=== PATIENT | male | born 1975 | race Caucasian/White ===

== ENCOUNTER 2017-12-26 18:05 | Emergency (ER) | payer OTHER ==
[2017-12-26 18:34] VITALS: BP 133/84
--- NOTE | 2017-12-26 18:58 | ED ---
Skin Complaint - HPI Summary HPI Summary: 41 yr old male with redness, swelling, pain, hardness to the posterior left axilla. The patient reports that in the beginning he had pimple, attempted to squeeze it, and little by little it has gotten larger and harder. The pain is moderate. He was put on keflex yesterday but has only taken two pills. No fever or chills - History of Current Complaint Chief Complaint: UCSkin Time Seen by Provider: 12/26/17 18:41 Stated Complaint: L SHOULDER/ARM SKIN CONDITION Pain Intensity: 9 - Allergy/Home Medications Allergies/Adverse Reactions: Allergies Allergy/AdvReac Type Severity Reaction Status Date / Time metformin AdvReac GI Upset Verified 12/26/17 18:29 Home Medications: Home Medications Pioglitazone TAB* [Actos TAB*] 15 mg PO DAILY 12/26/17 [History Confirmed ] PMH/Surg Hx/FS Hx/Imm Hx Endocrine/Hematology History: Reports: Hx Diabetes - Type 2 Cardiovascular History: Denies: Hx Hypertension Respiratory History: Denies: Hx Asthma - Surgical History Surgery Procedure, Year, and Place: left wrist surgery. R ACL repair Infectious Disease History: No Infectious Disease History: Denies: Traveled Outside the [place] in Last 30 Days - Family History Known Family History: Positive: Diabetes - Social History Occupation: Employed Full-time Alcohol Use: None Substance Use Type: Reports: None Smoking Status (MU): Never Smoked Tobacco Type: Smokeless Tobacco Amount Used/How Often: 1 can/day Review of Systems Constitutional: Negative Positive: Other - skin, sts, redness. All Other Systems Reviewed And Are Negative: Yes Physical Exam Triage Information Reviewed: Yes Vital Signs On Initial Exam: Initial Vitals Temp Pulse Resp BP Pulse Ox 98.5 F 85 14 133/84 98 12/26/17 18:30 12/26/17 18:30 12/26/17 18:30 12/26/17 18:30 12/26/17 18:30 Vital Signs Reviewed: Yes Appearance: Positive: Well-Appearing, No Pain Distress Skin: Positive: Other - left axilla with 2 cm of induration, firmness and redness without fluctuance. No abscess to drain at this point. Eyes: Positive: EOMI ENT: Positive: Normal ENT inspection Neck: Positive: Nontender Respiratory/Lung Sounds: Positive: Clear to Auscultation, Breath Sounds Present Cardiovascular: Positive: RRR. Negative: Murmur Abdomen Description: Negative: Distended Musculoskeletal: Positive: Strength/ROM Intact Neurological: Positive: Sensory/Motor Intact, Alert, Oriented to Person Place, Time, CN Intact II-III Psychiatric: Positive: Normal - Yoselyn Coma Scale Best Eye Response: 4 - Spontaneous Best Motor Response: 6 - Obeys Commands Best Verbal Response: 5 - Oriented Coma Scale Total: 15 Diagnostics - Vital Signs Vital Signs Temp Pulse Resp BP Pulse Ox 12/26/17 18:30 98.5 F 85 14 133/84 98 - Laboratory Lab Statement: Any lab studies that have been ordered have been reviewed, and results considered in the medical decision making process. Course/Dx - Course Course Of Treatment: 41 yr old male with early abscess without fluctuance. Change to bactrim DS. FU with PMD. Patient told to discontinue the keflex. - Diagnoses Provider Diagnoses: Abscess Discharge - Sign-Out/Discharge Documenting (check all that apply): Patient Departure All imaging exams completed and their final reports reviewed: No Studies - Discharge Plan Condition: Good Disposition: HOME Prescriptions: Sulfamethox/Trimethoprim DS* [Bactrim DS 800/160 TAB*] 1 tab PO BID #20 tab Patient Education Materials: Abscess (ED) Referrals: Jaziel Vizcarra MD [Primary Care Provider] - 2 Days - Billing Disposition and Condition Condition: GOOD Disposition: Home
== END 2017-12-26 18:57 | disposition home or self-care (01) ==
LOC: UCCORT 18:05
DX: L02.412 Cutaneous abscess of left axilla (principal); E11.9 Type 2 diabetes mellitus without complications; Z79.84 Long term (current) use of oral hypoglycemic drugs; Z88.8 Allergy status to other drugs, medicaments and biological substances; F17.290 Nicotine dependence, other tobacco product, uncomplicated
CPT/HCPCS: 99212; G0463

== ENCOUNTER 2019-06-03 08:15 | Emergency (ER) | payer SELFPAY ==
[2019-06-03 08:34] VITALS: BP 162/92
[2019-06-03] MEDS ORDERED: Tetracaine 0.5% OPTH.SOL 4 ML* 1 DROP BTL RIGHT EYE ONE (08:39)
[2019-06-03] MEDS ORDERED: Fluorescein Sodium TOPICAL* 1 MG TEST STRIP OPHTHALMIC ONE (08:40)
[2019-06-03] MEDS ORDERED: Tobramycin 0.3% OPHTH.SOL* 5 ML BOT (regular eye drops) RIGHT EYE ONE (09:11)
--- NOTE | 2019-06-03 09:14 | UC ---
Eye Complaint HPI - HPI Summary HPI Summary: 43-year-old male comes in with a chief complaint of right eye pain. Patient reports while at work on April 30, 2019 he was grinding some metal and a foreign body came up underneath his face mask and struck him in the right eye. The right eye is been irritating him since then irritation is getting worse in the last 2 days. Does wear glasses. Does feel that the right eye vision is not as good as it normally is. - History of Current Complaint Chief Complaint: UCEye Stated Complaint: RT EYE-FB Time Seen by Provider: 06/03/19 08:56 Pain Intensity: 6 - Allergies/Home Medications Allergies/Adverse Reactions: Allergies Allergy/AdvReac Type Severity Reaction Status Date / Time metformin AdvReac GI Upset Verified 06/03/19 08:30 Home Medications: Home Medications Glyburide 5 mg PO DAILY 11/14/12 [History Confirmed 06/03/19] Linagliptin (NF) [Tradjenta] 5 mg PO DAILY 11/14/12 [History Confirmed 06/03/19] Pioglitazone TAB* [Actos TAB*] 15 mg PO DAILY 06/03/19 [History Confirmed ] PMH/Surg Hx/FS Hx/Imm Hx Previously Healthy: Yes Endocrine History: Diabetes - Surgical History Surgical History: Yes Surgery Procedure, Year, and Place: left wrist surgery. R ACL repair - Family History Known Family History: Positive: Diabetes - Social History Alcohol Use: None Substance Use Type: None Smoking Status (MU): Never Smoked Tobacco Type: Smokeless Tobacco Amount Used/How Often: 1 can/day Review of Systems All Other Systems Reviewed And Are Negative: Yes Constitutional: Positive: Negative Skin: Positive: Negative Eyes: Positive: Blurred Vision, Drainage, Eye Redness ENT: Positive: Negative Respiratory: Positive: Negative Cardiovascular: Positive: Negative Gastrointestinal: Positive: Negative Motor: Positive: Negative Neurovascular: Positive: Negative Musculoskeletal: Positive: Negative Neurological/Mental Status: Positive: Negative Psychological: Positive: Negative Is Patient Immunocompromised?: No Physical Exam Triage Information Reviewed: Yes Appearance: Well-Appearing, No Pain Distress, Well-Nourished Vital Signs: Initial Vital Signs Temp 98.9 F 06/03/19 08:31 Pulse 112 06/03/19 08:31 Resp 14 06/03/19 08:31 BP 162/92 06/03/19 08:31 Pulse Ox 100 06/03/19 08:31 Vital Signs Reviewed: Yes Eyes: Positive: Other: - On floor seen stain exam with tetracaine there is a 2 mm black foreign body, cornea at the 3 o'clock position over the iris of the right eye. I used a Q-tip and got some of the foreign body out but there is foreign body that remains. PERRLA EOMI. There is some scleral injection. No hyphema. Neck: Positive: Supple Respiratory: Positive: No respiratory distress Musculoskeletal: Positive: Strength Intact, ROM Intact Neurological: Positive: Alert, Muscle Tone Normal Psychological: Positive: Age Appropriate Behavior Skin Exam: Normal Eye Complaint Course/Dx - Course Course Of Treatment: I was unable to completely remove the foreign body using a Q-tip. Patient started on tobramycin eyedrops here in clinic and patient has an appointment today with the leaf sticker Dr. Cardona. - Differential Dx/Diagnosis Provider Diagnosis: Foreign body of right eye Discharge ED - Sign-Out/Discharge Documenting (check all that apply): Patient Departure All imaging exams completed and their final reports reviewed: No Studies - Discharge Plan Condition: Stable Disposition: HOME Patient Education Materials: Eye Foreign Body (ED) Referrals: Mj Jorge MD [Primary Care Provider] - Additional Instructions: FOLLOW UP WITH OPHTHALMOLOGY, DR MAX, NOW. GET REEVALUATED SOONER IF NOT IMPROVED OR WORSE OR ANY QUESTIONS OR CONCERNS. - Billing Disposition and Condition Condition: STABLE Disposition: Home
== END 2019-06-03 09:23 | disposition home or self-care (01) ==
LOC: UCCORT 08:15
DX: T15.91XA Foreign body on external eye, part unspecified, right eye, initial encounter (principal); E11.9 Type 2 diabetes mellitus without complications; Z79.84 Long term (current) use of oral hypoglycemic drugs; Z88.8 Allergy status to other drugs, medicaments and biological substances; X58.XXXA Exposure to other specified factors, initial encounter; Y92.9 Unspecified place or not applicable
CPT/HCPCS: 99212; A9270-GY; G0463